=== PATIENT | male | born 1990 ===

== ENCOUNTER 2017-07-28 11:03 | Emergency (ER) | payer OTHER ==
[2017-07-28 11:17] VITALS: BP 127/83; PULSE 88; RESP 18; O2SAT 98
[2017-07-28 11:22] VITALS: TEMP 98
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
== END 2017-07-28 11:59 | disposition home or self-care (01) ==
LOC: MERGE 11:03 → ED 11:03
DX: M54.6 Pain in thoracic spine (principal); M54.9 Dorsalgia, unspecified; I10 Essential (primary) hypertension; G40.909 Epilepsy, unspecified, not intractable, without status epilepticus; R73.03 Prediabetes